=== PATIENT | male | born 1945 ===

== ENCOUNTER → 2020-12-19 | Outpatient (CLI) | payer BC | END | disposition home or self-care (01) | LOC: US 12-16 13:00 | PROVIDERS: ATTEND Nurse Practitioner Primary Care | DX: I73.9 Peripheral vascular disease, unspecified (principal); L81.9 Disorder of pigmentation, unspecified; I83.93 Asymptomatic varicose veins of bilateral lower extremities; M79.605 Pain in left leg; M79.604 Pain in right leg ==